=== PATIENT | male | born 1960 | race Caucasian/White ===

== ENCOUNTER → 2022-02-06 | Outpatient (CLI) | payer BC, MEDICARE ==
[~2022-02-06] MED LIST: CLON1TAB11 PO; DULO60CA7 PO; LISI1TAB39 PO; LITH600C PO; NAPR-699 PO; PRAZ2CAP2 PO; trazadone
--- NOTE | 2022-02-07 14:27 | RAD ---
CT CHEST_ABDOMEN_ AND PELVIS WITHOUT CONTRAST History: Abdominal pain. Comparison: None. Technique: CT of the chest, abdomen and pelvis without contrast. Findings: Chest: Pulmonary arteries: Unremarkable. Aorta and great vessels: No aneurysm of the aortic arch or thoracic aorta is seen. Mild atherosclerot ic calcification. Heart: The heart is normal in size. There is no pericardial effusion. Mild coronary artery calcificat ion. Thyroid: No significant abnormalities. Mediastinum and janeen: No mediastinal masses or adenopathy is seen. Esophagus: Small sliding hiatal hernia. Airways, Lungs, Pleura: The central airways are patent. No airspace consolidation, effusion or pneumo thorax. There is a 3 mm left lower lobe pulmonary nodule (axial image 87). Soft tissue and osseous: Mild degenerative changes of the thoracic spine. Prominent outward curvature of the xiphoid process. Abdomen/Pelvis: General abdomen: Trace free fluid in the pelvis. No free air. Liver : Normal in size and attenuation. No masses seen. Gallbladder/Biliary Tree: Normal gallbladder. No intrahepatic or extrahepatic biliary ductal dilatati on. Pancreas: Normal. Spleen: Normal in size and attenuation. Adrenal glands: Normal. Kidneys: Bilateral punctate nonobstructing nephrolithiasis. No hydronephrosis or hydroureter. No yunior l masses identified. Gastrointestinal: Small sliding hiatal hernia. The small bowel is unremarkable. Normal appendix. Mild sigmoid diverticulosis without evidence of diverticulitis. Stool present throughout the colon with p rominent well-formed stool at the sigmoid colon and rectum. Lymph nodes: No lymphadenopathy. Vessels: Mild ossification of the unopacified aorta and iliac arteries. Pelvic Organs: Bladder is decompressed. Unremarkable prostate. Soft tissues: Postsurgical changes from umbilical hernia repair with small dystrophic calcification. Surgical tacks from right inguinal hernia repair. Bones: No acute or aggressive lesions. Lower lumbar facet hypertrophy. Impression: 1. Trace nonspecific free fluid in the pelvis otherwise no acute inflammatory changes in the chest, abdomen and pelvis. 2. Prominent colonic stool burden with well-formed stool at the sigmoid and rectum. 3. Small 3 mm left lower lobe pulmonary nodule. Recommend follow-up according to 2017 [employer] Guidelines for solid pulmonary nodules: <6 mm: In a low risk patient, no routine follow-up. In a high risk patient (history of smoking or other known risk factors), optional CT at 12 months. [place] paitents with suspicious nodule morphology, upper lobe location, or both may warrant 12-month follo w-up. 4. Chronic incidental findings including mild diverticulosis without evidence of diverticulitis, sma ll sliding hiatal hernia, lateral nonobstructing nephrolithiasis and mild coronary artery calcificati on. ------ Exposure: One or more of the following individualized dose reduction techniques were utilized for thi s examination: 1. Automated exposure control 2. Adjustment of the mA and/or kV according to patient size 3. Use of iterative reconstruction technique. Electronically signed by: Shaquille Galloway MD (02/07/2022 2:25 PM) [id number]
== END ==
LOC: CT 14:44
PROVIDERS: ATTEND Internal Medicine
DX: R91.1 Solitary pulmonary nodule (principal); K56.41 Fecal impaction; I25.10 Atherosclerotic heart disease of native coronary artery without angina pectoris; I70.0 Atherosclerosis of aorta; K44.9 Diaphragmatic hernia without obstruction or gangrene; K57.30 Diverticulosis of large intestine without perforation or abscess without bleeding; N20.0 Calculus of kidney; M47.814 Spondylosis without myelopathy or radiculopathy, thoracic region; Z98.890 Other specified postprocedural states
CPT/HCPCS: 71250; 74176